=== PATIENT | female | born 1985 | race African-American/Black ===

== ENCOUNTER 2019-10-02 12:49 | Emergency (ER) | payer MEDICAID, SELFPAY ==
[2019-10-02 13:03] VITALS: BP 137/83; PULSE 82; RESP 16; TEMP 36.7; O2SAT 99
--- NOTE | 2019-10-02 13:27 | ED.SKABFB ---
HPI - Skin/Abscess/Foreign Bdy General Chief complaint: Skin/Abscess/Foreign Body Stated complaint: Abscess hair bump Time Seen by Provider: 10/02/19 13:20 Source: patient Mode of arrival: ambulatory Limitations: no limitations History of Present Illness HPI narrative: Irene Cleary is a 33 yo female with a PMH of hidradenitis, eczema, comes to express care with complaints of bumps in genital area. She has been trying to take a tweezers and pull out hairs to avoid them getting infected as she has had multiple abscesses in the past Related Data Allergies Allergy/AdvReac Type Severity Reaction Status Date / Time No Known Allergies Allergy Verified 10/02/19 13:01 Review of Systems Review of Systems: Narrative: CONSTITUTIONAL: Denies fever, chills, sweats. EYES: Denies visual changes, redness, discharge. ENT: Denies rhinorrhea, congestion, sore throat, otalgia. CARDIOVASCULAR: Denies chest pain, palpitations, edema. RESPIRATORY: Denies dyspnea, wheezing, cough GASTROINTESTINAL: Denies abdominal pain, nausea, vomiting, diarrhea. GENITOURINARY: Denies dysuria, hematuria, abnormal discharge SKIN: Bumps in genital area that are nonpainful non-inflamed NEUROLOGIC: Denies numbness, or focal weakness. PSYCHIATRIC: Denies anxiety or depression. [facility] Family History Family History (Updated 10/02/19 @ 13:29 by Miryam Dickson CNP) Other Diabetes mellitus Hypertension Social History Social History (Updated 10/02/19 @ 13:30 by Miryam Dickson CNP) Smoking status: Current every day smoker Substance use: current Comments At time of signature, I agree with nursing past medical, surgical, social and family history. There is no relevant family history pertinent to the presenting complaint. Exam Narrative: Exam Narrative: GENERAL: This is a well-nourished, well-developed patient, very anxious and crying HEAD: normocephalic, atraumatic. EYES: PERRL. Sclera clear/white. Vision is grossly intact. EARS: External ears normal, . Hearing grossly intact. NOSE: External nose normal with no obvious nasal discharge, nares without redness, no rhinorrhea. THROAT: Mucous membranes moist, posterior pharynx clear. NECK: Neck supple, CARDIOVASCULAR: Regular rate and rhythm without murmurs, gallops, or rubs. RESPIRATORY: Clear to auscultation. Breath sounds equal bilaterally. No wheezes, rales, or rhonchi. GASTROINTESTINAL: Abdomen soft, SKIN: warm, intact patient has bumps in genital area that are noninflamed, no erythema or induration, old scar [place]. NEURO: awake, alert, and oriented to person, place and time. There were no obvious focal neurologic abnormalities. Steady gait EXTREMITIES: Normal range of motion. No edema. BACK: Nontender without deformity or crepitance. No flank tenderness. Course Course Emergency Course: Started on mupirocin, chlorhexidine soap, given Atarax, Naprosyn Vital Signs Vital signs: Vital Signs Temperature 98.1 F 10/02/19 13:03 Pulse Rate 82 10/02/19 13:03 Respiratory Rate 16 10/02/19 13:03 Blood Pressure 137/83 10/02/19 13:03 Pulse Oximetry 99 10/02/19 13:03 Temperature 98.1 F 10/02/19 13:03 Pulse Rate 82 10/02/19 13:03 Respiratory Rate 16 10/02/19 13:03 Blood Pressure 137/83 10/02/19 13:03 Pulse Oximetry 99 10/02/19 13:03 MDM - Skin/Abscess/Foreign Bdy Differential Diagnosis Differential diagnosis: Likely abscess of skin or subcutaneous tissue, cellulitis, eczema and contact dermatitis Discharge Plan Discharge Clinical Impression: Hydradenitis Patient Disposition: Home, Self-Care Condition: Stable Instructions: Antibiotic Form, Hidradenitis Suppurativa (ED) Prescriptions: New hydroxyzine pamoate [Vistaril] 25 mg capsule 25 mg PO TID PRN (Reason: itching) Qty: 30 RF: 0 mupirocin 2 % ointment 1 applic TOPICAL BID Qty: 15 RF: 0 chlorhexidine gluconate 2 % liquid 1 applic TOPICAL WEEKLY Qty: 118 RF: 0 naproxen
== END 2019-10-02 13:36 | disposition home or self-care (01) ==
PROVIDERS: Emergency Provider Nurse Practitioner; PCP Emergency Medicine
DX: L73.2 Hidradenitis suppurativa (principal); F17.200 Nicotine dependence, unspecified, uncomplicated; K21.9 Gastro-esophageal reflux disease without esophagitis
CPT/HCPCS: 99213; G0463

== ENCOUNTER 2019-11-16 11:47 | Emergency (ER) | payer MEDICAID, SELFPAY ==
--- NOTE | 2019-11-16 11:55 | ED.GENADULT ---
HPI - General Adult General Chief complaint: Eye Problems Stated complaint: eye problems/std History of Present Illness HPI narrative: This is a 34 year old female that comes in with eye reddness and drainage. Patient is concerned that her partner has not been treated for the std the last time she was here and she thinks she has GONNerhea again and she could possibly have it in her eye per patient. Patient denies practicing safe sex and states she Related Data Allergies Allergy/AdvReac Type Severity Reaction Status Date / Time No Known Allergies Allergy Verified 10/02/19 13:01 Review of Systems Review of Systems: Narrative: CONSTITUTIONAL: Denies fever, chills, or sweats. EYES: Denies visual changes, reports redness, or discharge. ENT: Denies rhinorrhea, congestion, sore throat, or otalgia. CARDIOVASCULAR:Denies chest pain, palpitations, or edema. RESPIRATORY: Denies cough or dyspnea. GASTROINTESTINAL: Denies abdominal pain, nausea, vomiting, or diarrhea. GENITOURINARY: Denies dysuria or hematuria. SKIN:[Denies rash or itching. MUSCULOSKELETAL:Denies back pain, joint pain, or myalgia. NEUROLOGIC: Denies headache, numbness, or weakness. PSYCHIATRIC:Denies anxiety or depression PMF Family History Family History (Updated 10/02/19 @ 13:29 by Miryam Dickson CNP) Other Diabetes mellitus Hypertension Social History Social History (Updated 10/02/19 @ 13:30 by Miryam Dickson CNP) Smoking status: Current every day smoker Substance use: current Comments At time as signature, I have reviewed and agree with nursing past medical, social, surgical and family history. Please see nursing chart for further information. There is no relevant family history pertinent to the presenting complaint. Exam Narrative: Exam Narrative: GENERAL:Well-appearing, well-nourished, and in no acute distress. HEAD:Normocephalic, atraumatic. EYES: PERRLA and EOMI.erythema and drainage when patient woke up eye was crusted over. ENT: Nares clear, no rhinorrhea or epistaxis. Mucous membranes moist. NECK: Supple. CHEST: Clear to auscultation. No respiratory distress. HEART: Regular rate and rhythm. No murmur heard. Normal peripheral pulses. ABDOMEN: Soft, nontender, nondistended, normal active bowel sounds. EXTREMITIES: Normal range of motion. No edema. SKIN: Warm, dry, no rash. patient states she has drainage urine given deferred vaginal exam NEURO: No focal deficits. Alert and oriented x3. Course Vital Signs Vital signs: Vital Signs Temperature 98.8 F 11/16/19 12:01 Pulse Rate 102 H 11/16/19 12:01 Respiratory Rate 16 11/16/19 12:01 Blood Pressure 122/83 11/16/19 12:01 Pulse Oximetry 100 11/16/19 12:01 Temperature 98.8 F 11/16/19 12:01 Pulse Rate 102 H 11/16/19 12:01 Respiratory Rate 16 11/16/19 12:01 Blood Pressure 122/83 11/16/19 12:01 Pulse Oximetry 100 11/16/19 12:01 Medical Decision Making Vital Signs Vital Signs: Vital Signs Temperature 98.8 F 11/16/19 12:01 Pulse Rate 102 H 11/16/19 12:01 Respiratory Rate 16 11/16/19 12:01 Blood Pressure 122/83 11/16/19 12:01 Pulse Oximetry 100 11/16/19 12:01 Temperature 98.8 F 11/16/19 12:01 Pulse Rate 102 H 11/16/19 12:01 Respiratory Rate 16 11/16/19 12:01 Blood Pressure 122/83 11/16/19 12:01 Pulse Oximetry 100 11/16/19 12:01 Discharge Plan Discharge Clinical Impression: Sexually transmitted disease exposure, Acute atopic conjunctivitis of left eye Patient Disposition: Home, Self-Care Condition: Stable Instructions: Antibiotic Form, Sexually Transmitted Diseases (ED), Male Condom Use (ED), Safe Sex Practices (ED), Gonorrhea (ED), Female Condom Use (ED) Prescriptions: New gentamicin 0.3 % (3 mg/gram) ointment 0.5 inch EACH EYE Q8H Qty: 3.5 RF: 0 Follow-up/Referrals: Sebastian Hennessy MD [Primary Care Provider] - Time of Disposition: 12:21 Discharge Date/Time: 11/16/19 12:57
[2019-11-16 12:01] VITALS: BP 122/83; PULSE 102; RESP 16; TEMP 37.1; O2SAT 100
== END 2019-11-16 12:57 | disposition home or self-care (01) ==
PROVIDERS: Emergency Provider Nurse Practitioner Family; PCP Emergency Medicine
DX: H10.12 Acute atopic conjunctivitis, left eye (principal); Z20.2 Contact with and (suspected) exposure to infections with a predominantly sexual mode of transmission; F17.200 Nicotine dependence, unspecified, uncomplicated; K21.9 Gastro-esophageal reflux disease without esophagitis
CPT/HCPCS: 87491; 87591; 99214; G0463

== ENCOUNTER → 2020-01-29 12:06 | Outpatient (CLI) | payer OTHER, SELFPAY ==
--- NOTE | ~2020-01-29 | XR_ITS ---
EXAMINATION: XR chest 2V DATE: 01/29/2020 12:24 INDICATION: Wheezing and a few weeks of slight cough TECHNIQUE: PA and lateral views of the chest were obtained. COMPARISON: Chest radiograph dated 10/21/2016 FINDINGS: The lungs remain clear with no focal airspace opacities, pulmonary edema, pleural effusion or pneumot horax. The cardiomediastinal silhouette is normal. Visualized bones and soft tissues are unremarkable . IMPRESSION: 1. No acute cardiopulmonary disease. Reviewed, dictated and finalized at location A.
== END ==
PROVIDERS: PCP Emergency Medicine; Visit Provider Emergency Medicine
DX: R06.2 Wheezing (principal)
CPT/HCPCS: 71046

== ENCOUNTER 2020-08-01 09:27 | Emergency (ER) | payer OTHER, SELFPAY ==
--- NOTE | 2020-08-01 09:35 | ED.FEMALEGU ---
HPI - Female Genitourinary General Chief complaint: Urogenital-Female Stated complaint: std testing Time Seen by Provider: 08/01/20 09:45 Source: patient and RN notes reviewed Mode of arrival: ambulatory Limitations: no limitations History of Present Illness HPI Narrative: 34-year-old female presents with concern for gonorrhea. She reports sexual encounter with a partner who had gonorrhea, subsequent symptoms of suprapubic pain, vaginal discharge, vaginal itching and tingling, abnormal vaginal bleeding. She also reports a small blister on her outer lower lip. She denies fever, abdominal pain, pain with sex. MD elicited complaint: possible STD Related Data Home Medications Medication Instructions Recorded Confirmed etonogestrel-ethinyl estradiol 1 vag ring VAGINAL ONCE 08/01/20 08/01/20 [NuvaRing] Allergies Allergy/AdvReac Type Severity Reaction Status Date / Time No Known Allergies Allergy Verified 08/01/20 09:51 Review of Systems Review of Systems: Narrative: CONSTITUTIONAL: Denies malaise, chills, sweats, or fever. ENT: Denies sore throat, oral lesions. Reports a blister on the lower lip CARDIOVASCULAR: Denies chest pain, palpitations, or edema. RESPIRATORY: Denies cough or dyspnea. GASTROINTESTINAL: Denies abdominal pain, nausea, vomiting, diarrhea, bloody, or mucous stools. GENITOURINARY: Reports suprapubic pain, abnormal vaginal discharge, itching, abnormal vaginal bleeding. Denies frequency, urgency, dysuria or hematuria. SKIN: Reports vaginal itching MUSCULOSKELETAL: Denies myalgia. All systems reviewed & are unremarkable except as noted in HPI and below PMFSH Family History Family History (System 02/02/20 @ 09:10 by Adele Muñoz) Other Diabetes mellitus Hypertension Social History Social History (System 02/02/20 @ 09:10 by Adele Muñoz) Smoking status: Current every day smoker Substance use: current Comments At time of signature, agree with nursing past medical, surgical, social and family history. There is no relevant family history pertinent to the presenting complaint Exam Narrative: Exam Narrative: GENERAL: Well-appearing, well-nourished, and in no acute distress. HEAD: Normocephalic. EYES: PERRLA, conjunctivae clear. NECK: Supple. No lymphadenopathy CHEST: Clear to auscultation. No respiratory distress. HEART: Regular rate and rhythm. ABDOMEN: Soft, nontender upon palpation, nondistended, normal active bowel sounds, no palpable or pulsatile masses, no guarding. No CVA tenderness SKIN: Warm, dry, no rash. NEURO: Alert and oriented x3. PSYCH: Normal mood and affect : General: Yes deferred (Patient refused) Course Course Emergency Course: Patient is aware of diagnosis, understands and agrees to treatment plan. Anticipatory guidance given. Patient agrees to follow-up as directed and is aware of reasons to seek care at the emergency department. Portions of this record may have been created with voice recognition software Vital Signs Vital signs: Reviewed. Patient has been instructed to follow up with her primary care provider within the next week regarding her elevated blood pressure today. MDM - Female Genitourinary MDM Narrative Medical decision making narrative: Exam findings show no acute concerns or changes; patient is non-toxic appearing and is in no distress. Patient is appropriate for outpatient treatment and follow-up. Critical Care Time Critical Care Time Critical Care Time: No Discharge Plan Discharge Clinical Impression: Exposure to STD Patient Disposition: Home, Self-Care Condition: Stable Instructions: Antibiotic Form, Safe Sex Practices (ED) Additional Instructions: You have been tested for potential gonorrhea, chlamydia today. You have received antibiotics for gonorrhea and chlamydia today. You will receive a phone call in 2-3 days with the results of today's testing. It is very important that you avoid unprotected interco
[2020-08-01 09:38] VITALS: BP 152/98; PULSE 106; RESP 16; TEMP 36.7; O2SAT 100
[2020-08-01] MEDS: LIDOCAINE HCL 1% LOCAL INJ 20 ML VIAL INFILTRATE (10:08)
[2020-08-01] MEDS: cefTRIAXone 250 MG VIAL IM (10:08)
[2020-08-01] MEDS: AZITHROMYCIN 250 MG TABLET 1000 MG PO (10:08)
== END 2020-08-01 10:28 | disposition home or self-care (01) ==
PROVIDERS: Emergency Provider Nurse Practitioner; PCP Emergency Medicine
DX: Z20.2 Contact with and (suspected) exposure to infections with a predominantly sexual mode of transmission (principal); F17.200 Nicotine dependence, unspecified, uncomplicated
CPT/HCPCS: 87491; 87591; 87661; 96372; 99214; A9270; G0463; J0696

== ENCOUNTER 2020-08-05 12:52 | Emergency (ER) | payer OTHER, SELFPAY ==
[2020-08-05 13:00] VITALS: BP 106/75; PULSE 88; RESP 16; TEMP 35.9; O2SAT 100
--- NOTE | 2020-08-05 13:18 | ED.SKABFB ---
HPI - Skin/Abscess/Foreign Bdy General Chief complaint: Urogenital-Female Stated complaint: INGROWN HAIR Time Seen by Provider: 08/05/20 13:18 Source: patient and RN notes reviewed Mode of arrival: ambulatory Limitations: no limitations History of Present Illness HPI narrative: 34-year-old female presents with concern for possible ingrown hair in her groin. Reports history of ingrown hairs in her genital area, axilla area. Reports having procedures, surgery in the past to remove the ingrown hairs. She denies any redness, drainage to the area. She denies any general malaise, fever. Denies any abnormal vaginal discharge, dysuria, hematuria complaint: abscess/boil Related Data Home Medications Medication Instructions Recorded Confirmed etonogestrel-ethinyl estradiol 1 vag ring VAGINAL ONCE 08/01/20 08/05/20 [NuvaRing] Allergies Allergy/AdvReac Type Severity Reaction Status Date / Time No Known Allergies Allergy Verified 08/05/20 13:12 Review of Systems Review of Systems: Narrative: CONSTITUTIONAL: Denies malaise, chills, sweats, or fever. GENITOURINARY: Denies abnormal vaginal discharge, dysuria or hematuria. SKIN: Reports ingrown hair and groin MUSCULOSKELETAL: Denies myalgia. All systems reviewed & are unremarkable except as noted in HPI and below PMFSH Family History Family History (System 02/02/20 @ 09:10 by Adele Muñoz) Other Diabetes mellitus Hypertension Social History Social History (System 02/02/20 @ 09:10 by Adele Muñoz) Smoking status: Current every day smoker Substance use: current Comments At time of signature, agree with nursing past medical, surgical, social and family history. There is no relevant family history pertinent to the presenting complaint Exam Narrative: Exam Narrative: GENERAL: Well-appearing, well-nourished, and in no acute distress. HEAD: Normocephalic, atraumatic. EYES: PERRLA, conjunctivae clear ENT: Nares clear. Mucous membranes moist. NECK: Supple. CHEST: No respiratory distress. Speaks in full sentences. HEART: Regular rate and rhythm. SKIN: Warm, dry, no rash. Palpable nodule and raised area under skin to the right groin. No erythema, induration, drainage, scabbing, tenderness noted NEURO: Alert and oriented x3. No focal deficits. Cranial nerves II through XII grossly intact PSYCH: Normal mood and affect Course Course Emergency Course: Patient is aware of diagnosis, understands and agrees to treatment plan. Anticipatory guidance given. Patient agrees to follow-up as directed and is aware of reasons to seek care at the emergency department. Portions of this record may have been created with voice recognition software Vital Signs Vital signs: Vital Signs Temperature 96.7 F L 08/05/20 13:00 Pulse Rate 88 08/05/20 13:00 Respiratory Rate 16 08/05/20 13:00 Blood Pressure 106/75 08/05/20 13:00 Pulse Oximetry 100 08/05/20 13:00 Temperature 96.7 F L 08/05/20 13:00 Pulse Rate 88 08/05/20 13:00 Respiratory Rate 16 08/05/20 13:00 Blood Pressure 106/75 08/05/20 13:00 Pulse Oximetry 100 08/05/20 13:00 Reviewed. MDM - Skin/Abscess/Foreign Bdy MDM Narrative Medical decision making narrative: Exam findings show no acute concerns or changes; patient is non-toxic appearing and is in no distress. Patient is appropriate for outpatient treatment and follow-up. Critical Care Time Critical Care Time Critical Care Time: No Discharge Plan Discharge Clinical Impression: History of ingrowing hair Patient Disposition: Home, Self-Care Condition: Stable Additional Instructions: 1) Please follow-up with your primary care doctor in the next 1-2 days. 2) If you have any urgent concerns please go to the ER. 3) Please continue taking your home medications as usual. Prescriptions: No Action etonogestrel-ethinyl estradiol [NuvaRing] 0.12-0.015 mg/24 hr Ring 1 vag ring VAGINAL ONCE RF: 0 Foll
== END 2020-08-05 13:50 | disposition home or self-care (01) ==
PROVIDERS: Emergency Provider Nurse Practitioner
DX: L73.1 Pseudofolliculitis barbae (principal); F17.200 Nicotine dependence, unspecified, uncomplicated; K21.9 Gastro-esophageal reflux disease without esophagitis
CPT/HCPCS: 99211; G0463

== ENCOUNTER 2020-08-27 11:17 | Emergency (ER) | payer OTHER, SELFPAY ==
[2020-08-27 11:38] VITALS: BP 144/85; PULSE 86; RESP 16; TEMP 36.2; O2SAT 100
--- NOTE | 2020-08-27 13:20 | PC.NURSE ---
PT REFUSING LAB WORK AT THIS TIME, STATED THAT SHE HAD LBS DONE AND THAT IS WHY SHE IS HERE. RESULTS GIVEN TO PROVIDER
--- NOTE | 2020-08-27 13:50 | ED.GENADULT ---
HPI - General Adult General Chief complaint: Unspecified Stated complaint: abnormal lab Time Seen by Provider: 08/27/20 12:53 Source: patient Mode of arrival: ambulatory Limitations: no limitations History of Present Illness HPI narrative: This is a 34-year-old female that presents the emergency department for syphilis treatment. Reports she had labs drawn by her primary doctor on Sunday of this week. Reports she was called yesterday and told that her syphilis test was reactive. She was instructed to go to the ED for treatment of this. Denies any current symptoms. Denies fever, abdominal pain, vomiting, dysuria, or abnormal discharge. Related Data Home Medications Medication Instructions Recorded Confirmed etonogestrel-ethinyl estradiol 1 vag ring VAGINAL ONCE 08/01/20 08/05/20 [NuvaRing] paroxetine HCl mg PO 08/27/20 08/27/20 Allergies Allergy/AdvReac Type Severity Reaction Status Date / Time No Known Allergies Allergy Verified 08/27/20 11:42 Review of Systems Review of Systems: Narrative: CONSTITUTIONAL: Denies fever GASTROINTESTINAL: Denies abdominal pain, nausea, vomiting GENITOURINARY: Denies dysuria or hematuria. SKIN: Denies rash All systems reviewed & are unremarkable except as noted in HPI and below PMFSH Family History Family History (System 02/02/20 @ 09:10 by Adele Muñoz) Other Diabetes mellitus Hypertension Social History Social History (System 02/02/20 @ 09:10 by Adele Muñoz) Smoking status: Current every day smoker Substance use: current Gender identity (if verbalized by the patient): Female Exam Narrative: Exam Narrative: GENERAL: Well-appearing, well-nourished, and in no acute distress. HEAD: Normocephalic, atraumatic. EYES: EOMI. EXTREMITIES: Normal range of motion. No edema. SKIN: Warm, dry, no rash. NEURO: No focal deficits. Alert and oriented x3. PSYCH: Normal mood and affect Course Vital Signs Vital signs: Vital Signs Temperature 97.1 F L 08/27/20 11:38 Pulse Rate 86 08/27/20 11:38 Respiratory Rate 16 08/27/20 11:38 Blood Pressure 144/85 H 08/27/20 11:38 Pulse Oximetry 100 08/27/20 11:38 Temperature 97.1 F L 08/27/20 11:38 Pulse Rate 86 08/27/20 11:38 Respiratory Rate 16 08/27/20 11:38 Blood Pressure 144/85 H 08/27/20 11:38 Pulse Oximetry 100 08/27/20 11:38 Medical Decision Making MDM Narrative Medical decision making narrative: Patient presents the emergency department with a positive syphilis test to be treated. Per review of her labs, her UA did not look concerning for infection. Her bedside test today is negative. Her chlamydia, gonorrhea and trichomonas tests were negative. Her RPR and FTA-ABS were both reactive. Patient will be treated today with penicillin G. She wishes no further evaluation or treatment. Was instructed on the importance of following back up with her primary doctor. She was given warnings to return to the ER Medical Records Medical records reviewed: Yes I reviewed the patient's medical records. Vital Signs Vital Signs: Vital Signs Temperature 97.1 F L 08/27/20 11:38 Pulse Rate 86 08/27/20 11:38 Respiratory Rate 16 08/27/20 11:38 Blood Pressure 144/85 H 08/27/20 11:38 Pulse Oximetry 100 08/27/20 11:38 Temperature 97.1 F L 08/27/20 11:38 Pulse Rate 86 08/27/20 11:38 Respiratory Rate 16 08/27/20 11:38 Blood Pressure 144/85 H 08/27/20 11:38 Pulse Oximetry 100 08/27/20 11:38 Critical Care Time Critical Care Time Critical Care Time: No Discharge Plan Discharge Clinical Impression: Syphilis Patient Disposition: Home, Self-Care Condition: Stable Instructions: Syphilis (ED) Additional Instructions: Return to the ER if you experience fever, abdominal pain with nausea and vomiting, you are unable to keep down liquids or solids, pain or burning with urination, blood in the urine or any other symptoms that are conc
[2020-08-27] MEDS: PENICILLIN G BENZATHINE 2,400,000 UNITS/4 ML SYRINGE 2400000 UNITS IM (14:08)
[2020-08-27 14:19] LABS: Add Urine Microscopic? YES; Appearance Urine Cloudy (Clear); Bacteria Urine Trace /hpf; Bilirubin Urine Negative (Negative); Blood Urine 3+ (Negative); Color Urine Amber (Yellow); Glucose Urine UA Negative (Negative); Ketones Urine Negative (Negative); Leukocyte Esterase Ur Negative LEU/UL (Negative); Mucus Urine Heavy /lpf; Nitrate Urine Negative (Negative); Protein Urine 2+ mg/dL (Negative); RBC Urine >75 /hpf (0-2); Specific Grav Ur 1.028 (1.001-1.035); Squamous Epithelial Cell Urine Many /hpf (Few); WBC Urine 21-30 /hpf
== END 2020-08-27 14:10 | disposition home or self-care (01) ==
PROVIDERS: Physician Assistant; Emergency Provider Emergency Medicine; PCP Emergency Medicine
DX: A53.9 Syphilis, unspecified (principal); F17.200 Nicotine dependence, unspecified, uncomplicated
CPT/HCPCS: 81001; 81025; 87086; 96372; 99283; J0561

== ENCOUNTER 2021-08-16 11:19 | Emergency (ER) | payer OTHER, SELFPAY ==
--- NOTE | ~2021-08-16 | XR_ITS ---
EXAMINATION: XR chest 1V portable EXAM DATE: 08/16/2021 14:26 INDICATION: Right Side Arm Pain And Numbness, Mild Acute Chest Pain. TECHNIQUE: Portable AP frontal chest x-ray was obtained. Comparison is made to prior examination from 01/29/2020. FINDINGS: The lungs are clear. There are no pleural effusions. The cardiomediastinal silhouette is within normal limits. There is no pneumothorax suspected. The bones and soft tissues are unremarkab le. IMPRESSION: No acute cardiopulmonary findings. Reviewed, dictated and finalized at location G. [employer]
[2021-08-16 11:55] VITALS: BP 128/87; PULSE 87; RESP 20; TEMP 37.1; O2SAT 100
--- NOTE | 2021-08-16 11:58 | ECG_ITS ---
Measurements Intervals Center Rate: 78 P: 34 SC: 113 QRS: 53 QRSD: 90 T: 31 QT: 386 QTc: 441 Interpretive Statements SINUS RHYTHM WITH SHORT SC INTERVAL BORDERLINE T WAVE ABNORMALITY- ANTERIOR LEADS BORDERLINE ECG Electronically Signed On 08-16-2021 12:47:55 [employer] by Leonel Vargas D.O.
[2021-08-16 12:30] LABS: Basophils Percent Auto 0.5 % (0.2-1.2); Eosinophils Absolute Auto 0.1 K/mm3 (0-0.3); Eosinophils Percent Auto 1.1 % (0-4.4); Hematocrit 35.5 % (37.0-47.0); Hemoglobin 11.5 g/dL (12.0-15.0); Immature Granulocyte Absolute 0.02 K/mm3 (0.00-0.031); Immature Granulocyte Percent A 0.3 % (0-0.5); Lymphocytes Percent Auto 22.9 % (18.3-44.2); Mean Corpuscular HGB Conc 32.4 g/dl (32-36); Mean Corpuscular Hemoglobin 29.6 pg (26-34); Mean Corpuscular Volume 91.3 fl (80-100); Mean Platelet Volume 11.5 fl (7.4-10.4); Monocytes Absolute Auto 0.8 K/mm3 (0.1-0.6); Monocytes Percent Auto 10.5 % (2.6-8.5); Neutrophils Absolute Auto 4.8 K/mm3 (1.3-6.7); Neutrophils Percent Auto 64.7 % (45.5-73.1); Platelet Count Result 147 k/mm3 (150-375); Red Blood Count 3.89 M/mm3 (4.2-5.4); Red Cell Distribution Width 15.4 % (11.5-14.5); White Blood Count 7.4 K/mm3 (4.5-10.0)
[2021-08-16 12:40] LABS: Prothrombin Time 12.6 Seconds (11.1-14.7)
[2021-08-16 12:41] LABS: Partial Thromboplastin Time 26.9 SECONDS (22.3-36.8)
[2021-08-16 12:44] LABS: Alanine Aminotransferase 22 U/L (4-35); Albumin Level 4.2 g/dL (3.5-5.1); Alkaline Phosphatase 83 U/L (38-126); Anion Gap 9 mmol/L (8-16); Aspartate Amino Transferase 34 U/L (14-36); Bilirubin,Total 0.2 mg/dL (0.2-1.3); Blood Urea Nitrogen 7 mg/dL (7-17); Carbon Dioxide 22 mmol/L (22-30); Chloride 107 mmol/L (98-107); Estimated CRCL calculation 108 ml/min; Estimated Glomerular Filt Rate > 60; Glucose 93 mg/dL (65-110); Lipase 56 U/L (23-300); Sodium 138 mmol/L (137-145)
[2021-08-16 12:56] LABS: Troponin I < 0.012 ng/mL (0.000-0.034)
[2021-08-16 13:41] LABS: Band Neutrophils Percent 1 % (0-6); Lymphocytes Absolute Manual 2.51 K/mm3 (1.1-4.5); Monocytes Absolute Manual 0.44 K/mm3 (0.1-0.90); Monocytes Percent Manual 6 % (3-9); Neutrophils Absolute Manual 4.44 K/mm3 (1.7-7.2); Neutrophils Percent Manual 59 % (46-73); Platelet Estimate Adequate (Adequate); Total Cells Counted 100
[2021-08-16 14:26] VITALS: BP 125/62; PULSE 87; TEMP 37; O2SAT 100
--- NOTE | 2021-08-16 16:13 | PC.NURSE ---
No answer when called from lobby.
== END 2021-08-16 16:13 | disposition left against medical advice (07) ==
LOC: ANHED 16:19
PROVIDERS: Emergency Provider Emergency Medicine; PCP Emergency Medicine
DX: R07.9 Chest pain, unspecified (principal)
CPT/HCPCS: 36415; 71045; 80053; 83690; 84484; 85025; 85610; 85730; 93005; 99199

== ENCOUNTER 2021-11-15 11:15 | Emergency (ER) | payer OTHER, SELFPAY ==
[2021-11-15 11:24] VITALS: BP 125/73; PULSE 85; RESP 16; TEMP 37.2; O2SAT 100
--- NOTE | 2021-11-15 11:25 | ED.FEMALEGU ---
HPI - Female Genitourinary General Chief complaint: Urogenital-Female Stated complaint: STD testing Time Seen by Provider: 11/15/21 11:25 Source: patient, RN notes reviewed and old records reviewed Mode of arrival: ambulatory Limitations: no limitations History of Present Illness HPI Narrative: 36-year-old female presents to the [facility] at request of Dr. Hennessy. Patient had blood work and exam done at his office, items were sent to [facility] where we now have results we have obtained from Dr. Hennessy's office. Patient has positive gonorrhea. Denies any chest pain or abdominal pain. Denies any open sores. Denies any chance of . MD elicited complaint: possible STD Related Data Home Medications Medication Instructions Recorded Confirmed paroxetine HCl mg PO 08/27/20 08/27/20 amlodipine-benazepril cap 11/15/21 losartan 11/15/21 Allergies Allergy/AdvReac Type Severity Reaction Status Date / Time No Known Allergies Allergy Verified 08/27/20 11:42 Review of Systems Review of Systems: All systems reviewed & are unremarkable except as noted in HPI and below Constitutional: Constitutional: Reports no additional constitutional complaints, Denies chills and Denies fatigue Eyes: Eyes: Reports no additional eye complaints ENT: Reports system reviewed and no additional complaints, except as documented Cardiovascular: Cardiovascular: Reports no additional cardiovascular complaints and Denies chest pain Respiratory: Respiratory: Reports no additional respiratory complaints, Denies cough and Denies dyspnea Gastrointestinal: Gastrointestinal: Reports no additional gastrointestinal complaints, Denies abdominal pain, Denies diarrhea, Denies nausea and Denies vomiting Genitourinary: Genitourinary: Reports as per HPI, Denies hematuria, Denies nocturia, Denies dysuria, Denies pelvic pain, Denies flank pain and Reports vaginal discharge Musculoskeletal: Musculoskeletal: Reports no additional musculoskeletal complaints and Denies back pain Integumentary/Breasts: Skin/Breast: Reports system reviewed and no additional complaints, except as docu Neurologic: Reports system reviewed and no additional complaints, except as documented Psychiatric: Psychiatric: Reports no additional psychiatric complaints Endocrine: Endocrine: Denies fatigue Allergic/Immunologic: Allergic/Immunologic: Reports no additional allergic/immunologic complaints PMFSH Past Medical History Medical History Eczema Hydradenitis Surgical History Surgical History No pertinent past surgical history Family History Family History Other Diabetes mellitus Hypertension Social History Social History Smoking status: Current every day smoker Substance use: current Gender identity (if verbalized by the patient): Female Comments At the time of my signature, I reviewed and agree with the nursing past medical, surgical, social, and family history. There is no relevant family history pertinent to the patient complaint. Exam Const: General: healthy appearing, no acute distress and alert Nutritional Appearance: well nourished Orientation/consciousness: patient oriented x3 Limitations: no limitations HENMT: Head: normal to inspection Ears: external ears normal Eyes: Conjunctivae: conjunctivae normal Pupils: Equal, round and reactive pupils present Neck: Neck: normal visual inspection, no lymphadenopathy and no meningeal signs Chest: Chest palpation & inspection: normal inspection of the chest and abnormal inspection of the chest Resp: Effort & Inspection: normal respiratory effort Auscultation: clear to auscultation bilaterally Cardio: Rate: regular rate Rhythm: regular rhythm Skin: General skin exam: normal col
--- NOTE | 2021-11-15 11:42 | PC.NURSE ---
transcription specialist spoke with pmd office and test results were faxed.
[2021-11-15] MEDS: cefTRIAXone 500 MG, LIDOCAINE HCL 1% LOCAL INJ 1 ML IM (11:49)
== END 2021-11-15 12:16 | disposition home or self-care (01) ==
PROVIDERS: Emergency Provider Nurse Practitioner; PCP Emergency Medicine
DX: A54.9 Gonococcal infection, unspecified (principal); F17.200 Nicotine dependence, unspecified, uncomplicated
CPT/HCPCS: 96372; 99213; G0463; J0696

== ENCOUNTER 2022-01-19 09:02 | Emergency (ER) | payer OTHER, SELFPAY ==
[2022-01-19 09:06] VITALS: BP 134/86; PULSE 60; RESP 20; TEMP 36.4; O2SAT 97
--- NOTE | 2022-01-19 09:31 | ED.FEMALEGU ---
HPI - Female Genitourinary General Chief complaint: [employer] Stated complaint: STI check Time Seen by Provider: 01/19/22 09:26 History of Present Illness HPI Narrative: 36-year-old female presents to the emergency room for treatment for syphilis. Patient states 14 months ago was evaluated and treated for syphilis. At that time patient was told to follow-up with her CLINICAL CYTOGENETICIST in 12 months for reevaluation. 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 Patient states that she has not followed up for treatment. Patient denies dysuria, vaginal discharge, denies vaginal ulcerations, vaginal lesions, or vaginal masses. No further concerns for STIs at this time. Related Data Home Medications Medication Instructions Recorded Confirmed paroxetine HCl 10 mg tablet mg PO 08/27/20 08/27/20 amlodipine 5 mg-benazepril 10 mg cap 11/15/21 capsule losartan 50 mg tablet 11/15/21 Allergies Allergy/AdvReac Type Severity Reaction Status Date / Time No Known Allergies Allergy Verified 01/19/22 09:31 Review of Systems Review of Systems: CONSTITUTIONAL: Denies fever, chills, or sweats. EYES: Denies visual changes, redness, or discharge. ENT: Denies rhinorrhea, congestion, sore throat, or otalgia. CARDIOVASCULAR: Denies chest pain, palpitations, or edema. RESPIRATORY: Denies cough or dyspnea. GASTROINTESTINAL: Denies abdominal pain, nausea, vomiting, or diarrhea. GENITOURINARY: Denies dysuria or hematuria. SKIN: Denies rash or itching. MUSCULOSKELETAL: Denies back pain, joint pain, or myalgia. NEUROLOGIC: Denies headache, numbness, dizziness, or weakness. PSYCHIATRIC: Denies anxiety or depression. [facility] Past Medical History Medical History Eczema Hydradenitis Surgical History Surgical History No pertinent past surgical history Family History Family History Other Diabetes mellitus Hypertension Social History Social History Smoking status: Current every day smoker Substance use: current Gender identity (if verbalized by the patient): Female Exam Narrative: GENERAL: Well-appearing, well-nourished, and in no acute distress. HEAD: Normocephalic, atraumatic. EYES: PERRLA and EOMI. CHEST: Clear to auscultation. No respiratory distress. No wheezes rales or rhonchi HEART: Regular rate and rhythm. No murmur heard. Normal peripheral pulses. ABDOMEN: Soft, nontender, nondistended, normal active bowel sounds. : Deferred EXTREMITIES: Normal range of motion. No edema. SKIN: Warm, dry, no rash. NEURO: No focal deficits. Alert and oriented x3. PSYCH: Normal mood and affect. Course Course Emergency Course: 934: Patient refusing further evaluation for any other STIs at this time. Vital Signs Vital signs: Vital Signs Temperature 36.4 C 01/19/22 09:06 Pulse Rate 60 01/19/22 09:06 Respiratory Rate 20 01/19/22 09:06 Blood Pressure 134/86 01/19/22 09:06 Pulse Oximetry 97 01/19/22 09:06 Oxygen Delivery Room Air 01/19/22 09:06 Temperature 36.4 C 01/19/22 09:06 Pulse Rate 60 01/19/22 09:06 Respiratory Rate 20 01/19/22 09:06 Blood Pressure 134/86 01/19/22 09:06 Pulse Oximetry 97 01/19/22 09:06 Oxygen Delivery Room Air 01/19/22 09:06 MDM - Female Genitourinary Lab Data Labs: Lab Results 01/19/22 Range/Units 09:40 RPR Non-reactive (NonReactive) Discharge Plan Discharge Clinical Impression: Syphilis Patient Disposition: Home, Self-Care Condition: Stable Instructions: Antibiotic Form, Sexually Transmitted Diseases (ED) Additional Instructions: Follow-up with your PCP in 1 to 2 months for reevaluation. Prescr
[2022-01-19] MEDS: PENICILLIN G BENZATHINE 2,400,000 UNITS/4 ML SYRINGE 2400000 UNITS IM (09:37)
[2022-01-19 10:59] LABS: Rapid Plasma Reagin Non-Reactive (NonReactive)
== END 2022-01-19 11:09 | disposition home or self-care (01) ==
LOC: ANHED 09:39
PROVIDERS: Emergency Provider Nurse Practitioner Family; PCP Emergency Medicine
DX: A53.9 Syphilis, unspecified (principal)
CPT/HCPCS: 36415; 86592; 96372; 99283; J0561